=== PATIENT | female | born 1965 | race American Indian/Alaskan Native ===

== ENCOUNTER 2016-11-17 10:08 | Outpatient (CLI) | payer OTHER ==
--- NOTE | 2016-11-17 11:40 | Mammography Report ---
Bilateral diagnostic mammogram Spot compression magnification of density upper outer right breast and sonograph examination of subareolar area and density upper outer right breast: Findings: There is persistence of circumscribed density with obscured margins noted at upper outer right breast on spot magnification view. No microcalcification is seen in the density. Sonographic examination reveals multiple dilated ducts with debris within the duct however no distinct mass is seen. No abnormal color flow noted. Single lymph node is identified at approximate 9:00 position 1 cm from nipple which may or may not correspond to the density seen on mammogram. No additional masses are identified. Impression: Probably benign dilated ducts and density upper outer quadrant. 6 month followup with right breast mammogram and sonogram recommended. BI-RADS CATEGORY: 3 = Probably benign ACR BI-RADS MAMMOGRAPHIC CODES: 0 = Needs additional imaging evaluation; 1 = Negative; 2 = Benign; 3 = Probably benign; 4 = Suspicious; 5 = Malignant; 6 = Known biopsy-proven malignancy COMMENT: 1. Dense breast tissue, i.e., adenosis, fibrocystic changes, etc., may obscure an underlying neoplasm. 2. Approximately 10% of cancers are not detected with mammography. 3. A negative mammography report should not delay biopsy if a clinically suspicious mass is present. COMMENT: Patient follow-up letters are generated in [employer].
== END 2016-11-17 10:09 | disposition home or self-care (01) ==
LOC: MAMMO 10:08
PROVIDERS: ATTEND Internal Medicine
DX: N64.52 Nipple discharge (principal); Z97.5 Presence of (intrauterine) contraceptive device
CPT/HCPCS: 76642; G0204; 77066

== ENCOUNTER 2017-06-27 09:14 | Outpatient (CLI) | payer OTHER ==
--- NOTE | 2017-06-27 16:00 | Mammography Report ---
RIGHT DIGITAL DIAGNOSTIC MAMMOGRAM and RIGHT BREAST ULTRASOUND: 06/27/17 09:14:00 CLINICAL: Followup asymmetry. COMPARISON:11/17/16 FINDINGS: Routine views without and with spot magnification images were obtained. A low-density circumscribed focal asymmetry persists on both views. Ultrasound of the upper outer right breast was performed and demonstrated a lymph node with central fat a benign morphology at 9 o'clock 10 cm from the nipple. It measures 9.5 m in maximum dimension and correlates with the mammographic density. Ultrasound of the retroareolar area demonstrates stable duct ectasia with intraductal debris. The patient reports that she still has a sporadic clear right nipple discharge but that she has not seen a discharge for about 2 weeks. IMPRESSION: A benign intramammary lymph node at 9 o'clock 10 cm from the nipple and probably benign retroareolar duct ectasia. BI-RADS CATEGORY: 3 - - Probably Benign RECOMMENDATION: Routine mammographic screening. I also recommend consultation with a breast surgeon regarding the right nipple discharge. ACR BI-RADS MAMMOGRAPHIC CODES: 0 = Needs additional imaging evaluation; 1 = Negative; 2 = Benign; 3 = Probably benign; 4 = Suspicious; 5 = Malignant; 6 = Known biopsy-proven malignancy COMMENT: 1. Dense breast tissue, i.e., adenosis, fibrocystic changes, etc., may obscure an underlying neoplasm. 2. Approximately 10% of cancers are not detected with mammography. 3. A negative mammography report should not delay biopsy if a clinically suspicious mass is present. COMMENT: Patient follow-up letters are generated via our [email or web address] application.
== END 2017-06-27 09:15 | disposition home or self-care (01) ==
LOC: MAMMO 09:14
PROVIDERS: ATTEND Internal Medicine
DX: N60.41 Mammary duct ectasia of right breast (principal); N64.89 Other specified disorders of breast

== ENCOUNTER 2017-10-24 09:03 | Outpatient (CLI) | payer OTHER ==
--- NOTE | 2017-10-24 09:55 | Mammography Report ---
Bilateral mammogram: Routine views are compared to prior examination dated November 17, 2016. There is an intermediate fibroglandular pattern which is symmetric in distribution. The left breast pattern is unremarkable and unchanged. There is a circumscribed nodule in the upper outer right breast with an otherwise unremarkable pattern. This has remained unchanged. Fatty changes are noted within the nodule. A prior ultrasound in June of 2017 demonstrate characteristics of a benign appearing lymph node. The findings are not otherwise remarkable. CAD used. Impression: Stable exam. No suspicious findings. Recommendation: Annual mammogram followup. BI-RADS CATEGORY: 2 = Benign ACR BI-RADS MAMMOGRAPHIC CODES: 0 = Needs additional imaging evaluation; 1 = Negative; 2 = Benign; 3 = Probably benign; 4 = Suspicious; 5 = Malignant; 6 = Known biopsy-proven malignancy COMMENT: 1. Dense breast tissue, i.e., adenosis, fibrocystic changes, etc., may obscure an underlying neoplasm. 2. Approximately 10% of cancers are not detected with mammography. 3. A negative mammography report should not delay biopsy if a clinically suspicious mass is present.
== END 2017-10-24 09:04 | disposition home or self-care (01) ==
LOC: MAMMO 09:03
PROVIDERS: ATTEND Internal Medicine
DX: N64.52 Nipple discharge (principal)
CPT/HCPCS: 77066

== ENCOUNTER 2018-04-09 13:53 | Outpatient (CLI) | payer OTHER ==
--- NOTE | 2018-04-09 16:19 | Mammography Report ---
RIGHT DIGITAL DIAGNOSTIC MAMMOGRAM with CAD and RIGHT BREAST ULTRASOUND: 04/09/18 13:53:00 CLINICAL: History of a sporadic clear right nipple discharge for several months. COMPARISON:06/27/17 FINDINGS: There are scattered fibroglandular densities.No mass, architectural distortion or suspicious calcifications. A stable upper outer benign intraparenchymal lymph node with central fat. Ultrasound of the right breast (including all four quadrants and the retroareolar area) was performed and demonstrated normal fibroglandular and fatty structures. Mild retroareolar ductal ectasia. No mass, cyst or shadowing. IMPRESSION: Negative mammogram and negative right breast ultrasound except for mild retroareolar ductal ectasia. BI-RADS CATEGORY: 2 - - Benign RECOMMENDATION: Consultation with a breast surgeon regarding the right nipple discharge. ACR BI-RADS MAMMOGRAPHIC CODES: 0 = Needs additional imaging evaluation; 1 = Negative; 2 = Benign; 3 = Probably benign; 4 = Suspicious; 5 = Malignant; 6 = Known biopsy-proven malignancy COMMENT: 1. Dense breast tissue, i.e., adenosis, fibrocystic changes, etc., may obscure an underlying neoplasm. 2. Approximately 10% of cancers are not detected with mammography. 3. A negative mammography report should not delay biopsy if a clinically suspicious mass is present. COMMENT: Patient follow-up letters are generated by our [employer] application.
== END 2018-04-09 13:54 | disposition home or self-care (01) ==
LOC: MAMMO 13:53
PROVIDERS: ATTEND Internal Medicine
DX: R92.8 Other abnormal and inconclusive findings on diagnostic imaging of breast (principal)

== ENCOUNTER 2019-04-08 12:56 | Outpatient (CLI) | payer OTHER ==
--- NOTE | 2019-04-08 14:38 | Ultrasound Report ---
ULTRASOUND-GUIDED VACUUM-ASSISTED NEEDLE CORE BIOPSY RIGHT BREAST WITH CLIP PLACEMENT CLINICAL: Bloody nipple discharge and an intraductal lesion identified by ultrasound 03/14/2019 FINDINGS: The procedure was explained to the patient and informed consent was obtained. Ultrasound demonstrated more extensive duct ectasia at 7:00 periareolar region. Several moderately di lated ducts contain intraductal mass. The ducts all seem to communicate with each other.. I marked the breast with a felt tip marker and a timeout was called. The skin was prepped with Chloro -Prep and anesthetized with 1% lidocaine. Vacuum-assisted needle core biopsy was performed through tiny dermatotomy using ultrasound guidance, 2% lidocaine with epinephrine for deep anesthesia and a 13-gauge and 10-gauge Mammotome Elite biopsy devices. Multiple cores were obtained and placed in formalin. Initially a 13-gauge probe was used but samples were scanned. I switched to a 10-gauge probe and obtained numerous sizable cores. Approximat dayne 17 passes were made in total. A hydromark clip was deployed at the site of the biopsy. The patient tolerated the procedure well and there were no apparent complications. Hemostasis was ach ieved with minimal effort and a sterile dressing was applied. A post procedure mammogram demonstrated concordant clip deployment and mild increased density at the site.. She left the department in good condition and was given instructions for wound care and follow -up. IMPRESSION: Uncomplicated ultrasound guided needle core biopsy with clip placement right breast. Signer Name: Augustine Rapp MD Signed: 04/08/2019 2:34 PM Workstation Name: [id number]
--- NOTE | 2019-04-08 14:41 | Mammography Report ---
DIGITAL DIAGNOSTIC MAMMOGRAM WITH CAD, 04/08/2019 INDICATION: -Post clip RT TECHNIQUE: Digital right mammographic imaging was performed. This examination was interpreted with the benefit of Computer-aided Detection analysis. COMPARISON: 03/14/2019 FINDINGS: Breast Density: The breast is heterogeneously dense, which may obscure small masses. A coil-shaped bi opsy marker is identified at 7:00 approximately 3 cm from the nipple. IMPRESSION: Concordant clip deployment. Follow up recommendation: Surgical consult Post biopsy imaging. A "normal" or negative report should not discourage follow up or biopsy of a clinically significant f inding. A written summary of these findings will be mailed to the patient. The patient will be entered into a mammography reporting system which will generate a reminder letter for the patient's next appointmen t at the appropriate interval. According to the [employer], yearly mammograms are recommended starting at age 40 and continuing as long as a woman is in good health. Breast MRI is recommended for women with an cruzito roximately 20-25% or greater lifetime risk of breast cancer, including women with a strong family his tory of breast or ovarian cancer and women who have been treated for Hodgkin's disease. Signer Name: Augustine Rapp MD Signed: 04/08/2019 2:37 PM Workstation Name: [id number]
== END 2019-04-08 12:57 | disposition home or self-care (01) ==
LOC: SPVWC 12:56
PROVIDERS: ATTEND Internal Medicine Endocrinology, Diabetes & Metabolism
DX: N63.13 Unspecified lump in the right breast, lower outer quadrant (principal); D24.1 Benign neoplasm of right breast; N62 Hypertrophy of breast
CPT/HCPCS: 88305; 88341; 88342

== ENCOUNTER 2020-11-26 11:52 | Outpatient (CLI) | payer OTHER ==
--- NOTE | 2020-11-26 13:41 | Mammography Report ---
DIGITAL SCREENING MAMMOGRAM WITH CAD, 11/26/2020 CLINICAL INFORMATION / INDICATION: Routine screening mammography. SCREENING MAMMOGRAM TECHNIQUE: Digital bilateral 2D mammography was obtained in the craniocaudal and mediolateral obliqu e projections. This examination was interpreted with the benefit of Computer-Aided Detection analysis . COMPARISON: 11/17/2016 through 03/14/2019. FINDINGS: Breast Density: There are scattered areas of fibroglandular density. No dominant mass, suspicious calcifications, or architectural distortion in either breast. A benign intramammary lymph node in the right upper outer quadrant is again identified. IMPRESSION: No mammographic evidence of malignancy. Follow up recommendation: Routine yearly BI-RADS Category 2: Benign. A "normal" or negative report should not discourage follow up or biopsy of a clinically significant f inding. A written summary of these findings will be mailed to the patient. The patient will be entered into a mammography reporting system which will generate a reminder letter for the patient's next appointmen t at the appropriate interval. The [employer] recommends yearly mammograms starting at age 40 and continuing as l cece as a woman is in good health. Breast MRI is recommended for women with an approximate 20-25% or greater lifetime risk of breast cancer, including women with a strong family history of breast or ova christina cancer or who have been treated for Hodgkin's disease. Signer Name: Keanu Guzman MD Signed: 11/26/2020 1:36 PM Workstation Name: [id number]
== END 2020-11-26 11:53 | disposition home or self-care (01) ==
LOC: MAMMO 11:52
PROVIDERS: ATTEND Internal Medicine
DX: Z12.31 Encounter for screening mammogram for malignant neoplasm of breast (principal); N64.89 Other specified disorders of breast
CPT/HCPCS: 77067